=== PATIENT | male | born 1990 | race Two or more races ===

== ENCOUNTER 2022-11-20 23:15 | Emergency (ER) | payer MEDICAID, OTHER ==
[~2022-11-20] VITALS: Ht 177.8 cm; Wt 68.0 kg
--- NOTE | 2022-11-20 23:18 | NUR ---
[id number] from home SOB past hr, hx of Asthma, on CPAP on arrival, 70%'s O2 per report. given Epi 0.5MG, on albuterol x2 HHN on arrival. PT A/OX4. CONNECTED PT TO POX AND MONITOR. SAFETY MEASURES IN PLACE.
[2022-11-20] MEDS ORDERED: IPRATROPIUM NEB FS 0.5 MG/2.5 ML AMPUL.NEB ONE (23:19)
[2022-11-20] MEDS ORDERED: ALBUTEROL FS 2.5 MG/3 ML VIAL.NEB ONE ×2 (23:19→23:42)
--- NOTE | 2022-11-20 23:20 | NUR ---
RT AT PT'S BEDSIDE
[2022-11-20] MEDS ORDERED: methylPREDNISolone SOD SUCC 125 MG/2ML VIAL ONE (23:21)
[2022-11-20] MEDS ORDERED: Magnesium 1GM/D5W 100ML PREMIX 100 ML IV ONE ×2 (23:21→23:26)
--- NOTE | 2022-11-20 23:27 | NUR ---
AUTHOR'S AGENT AT PT'S BEDSIDE
--- NOTE | 2022-11-20 23:27 | NUR ---
BLOOD COLLECTED AND SENT TO LAB
[2022-11-20] MEDS ORDERED: ALBUTEROL FS 2.5 MG/3 ML VIAL.NEB CONTNEB ONE (23:30)
[2022-11-20] MEDS ORDERED: Magnesium 1GM/D5W 100ML PREMIX 200 ML IV ONE (23:30)
[2022-11-20] MEDS ORDERED: IPRATROPIUM NEB FS 0.5 MG/2.5 ML AMPUL.NEB NEB ONE (23:30)
[2022-11-20] MEDS ORDERED: methylPREDNISolone SOD SUCC 125 MG/2ML VIAL IV ONE (23:30)
[2022-11-20 23:51] LABS: BASOPHILS # (AUTO) 0.1 K/uL (0.0-0.2); BASOPHILS % (AUTO) 0.4 % (0.0-2.0); EOSINOPHILS % (AUTO) 6.4 % (0.0-6.0); HEMATOCRIT 51 % (39-51); HEMOGLOBIN 16.8 g/dL (13.5-17.5); LYMPHOCYTES # (AUTO) 4.5 K/uL (0.8-4.8); LYMPHOCYTES % (AUTO) 25.2 % (20.0-44.0); MEAN CORPUSCULAR HGB CONC 33 g/dl (31.0-36.0); MEAN CORPUSCULAR VOLUME 85 fL (80-96); MONOCYTES # (AUTO) 1.2 K/uL (0.1-1.30); MONOCYTES % (AUTO) 6.6 % (2.0-12.0); NEUTROPHILS # (AUTO) 10.8 K/uL (1.8-8.9); NEUTROPHILS % (AUTO) 61.4 % (43.0-81.0); PLATELET COUNT (AUTO) 354 K/uL (150-450); RED BLOOD CELL COUNT(AUTO) 6.02 MIL/uL (4.5-6.0); WHITE BLOOD COUNT (AUTO) 17.6 K/uL (4.3-11.0)
[2022-11-21 00:15] LABS: CALCIUM, SERUM 9.3 mg/dL (8.5-10.1); CARBON DIOXIDE 32 mmol/L (21-32); CHLORIDE 104 mmol/L (98-107); GLUCOSE 149 mg/dL (74-106); POTASSIUM 3.6 mmol/L (3.5-5.1); SODIUM SERUM 143 mmol/L (136-145); UREA NITROGEN, BLOOD 24 mg/dL (7-18)
[2022-11-21 00:18] LABS: ALANINE AMINOTRANSFERASE 24 U/L (12-78); ALBUMIN 3.8 g/dL (3.4-5.0); ALKALINE PHOSPHATASE 129 U/L (46-116); ASPARTATE AMINOTRANSFERASE 24 U/L (15-37); BILIRUBIN,DIRECT 0.2 mg/dL (0.0-0.2); BILIRUBIN,TOTAL 0.8 mg/dL (0.2-1.0); TOTAL PROTEIN, SERUM 7.6 g/dL (6.4-8.2)
[2022-11-21] MEDS ORDERED: IPRATROPIUM NEB FS 0.5 MG/2.5 ML AMPUL.NEB ONE (00:33)
[2022-11-21] MEDS ORDERED: ALBUTEROL FS 2.5 MG/3 ML VIAL.NEB ONE (00:33)
[2022-11-21] MEDS ORDERED: ALBUTEROL FS 2.5 MG/0.5 ML VIAL.NEB NEB ONE (01:00)
[2022-11-21] MEDS ORDERED: IPRATROPIUM NEB FS 0.5 MG/2.5 ML AMPUL.NEB NEB ONE (01:00)
--- NOTE | 2022-11-21 02:24 | NUR ---
PT DESATURATED TO 89% WHILE ASLEEP. PT WAS PLACED ON O2 AT 2 LPM VIA NC . REMAINED ON CONSTANT MONITORING.
--- NOTE | 2022-11-21 02:56 | NUR ---
RESTING COMFORTABLY. SATTING AT 96% ON 2L OF O2 VIA NC. WILL CONT TO MONITOR
[2022-11-21] MEDS ORDERED: ALBU2.5V13 NEB (03:40)
[2022-11-21] MEDS ORDERED: ALBU8.5H8 INH (03:40)
[2022-11-21] MEDS ORDERED: PRED50TA PO (03:40)
--- NOTE | 2022-11-21 03:47 | NUR ---
REMOVED O2. PT TOLERATING R/A SATTING AT 96% WITH NO RESP DISTRESS. RR EVEN AND NON LABORED. DR GONZALEZ DO AWARE.
--- NOTE | 2022-11-21 03:48 | NUR ---
Patient discharged to home in stable condition. RX Written and verbal after care instructions given. Patient verbalizes understanding of instruction. IV removed. Catheter intact and site benign. Pressure and 4x4 applied to site. No bleeding noted. PT ambulatory with a steady gait
[2022-11-21 04:02] VITALS: BP 104/74
== END 2022-11-21 04:02 | disposition home or self-care (01) ==
LOC: ER 23:17
DX: J98.01 Acute bronchospasm (principal); Z20.822 Contact with and (suspected) exposure to COVID-19; Z79.52 Long term (current) use of systemic steroids; Z79.51 Long term (current) use of inhaled steroids
CPT/HCPCS: 99285; 96365; 71045; 96366; 96375; 87426; 93005; 85025; 80048; 87040 ×2; 83605; 80076; 85378; 36415; 84484; 85730; 83880; 94644; 94645; J2930; A4223; J3475 ×2; C9803